=== PATIENT | female | born 1980 | race Caucasian/White ===

== ENCOUNTER 2022-06-04 19:34 | Emergency (ER) | payer OTHER, SELFPAY ==
--- NOTE | ~2022-06-04 | XR_ITS ---
EXAMINATION: XR chest 1V portable Exam Date/Time: 06/04/2022 19:55 CDT HISTORY: chest pain LT side x today Comparison: None available. RESULT: Lines, tubes, and devices: None. Lungs and pleura: Clear. Cardiomediastinal silhouette: Stable. Other: Minimal cortical irregularity of the left first lateral rib, possible fracture lucency in the left lateral second rib. No acute upper abdominal finding. IMPRESSION: Possible left first and second lateral rib fractures, correlate with pain/tenderness. Reviewed, dictated and finalized at location K. IMPRESSION: Possible left first and second lateral rib fractures, correlate with pain/tende rness.
[2022-06-04 19:35] VITALS: BP 152/98; PULSE 89; RESP 22; TEMP 36.6; O2SAT 100
[2022-06-04 19:45] VITALS: BP 144/88; PULSE 90; RESP 20; O2SAT 100
--- NOTE | 2022-06-04 19:48 | ED.GENADULT ---
HPI - General Adult General Chief complaint: Chest Pain Stated complaint: chest pain History of Present Illness HPI narrative: The patient is a 41-year-old woman with history of anxiety and fibromyalgia, status post hysterectomy. She presents with sharp stabbing left-sided chest pain since 6:15 p.m. today, for the last 90 minutes, centered in the left aspect of her chest, pleuritic in nature, worse by coughing or deep breathing. She is quite anxious. No radiation of the pain elsewhere. No dyspnea. No cough rhinorrhea or nasal congestion or fevers or chills with diaphoresis or abdominal pain or nausea vomiting or urinary symptoms. No previous similar episodes. Related Data Home Medications Medication Instructions Recorded Confirmed cyclobenzaprine 10 mg tablet 10 mg PO DIRECTED 06/04/22 06/04/22 sertraline 100 mg tablet 100 mg PO DIRECTED 06/04/22 06/04/22 tramadol 50 mg tablet 50 mg PO DIRECTED 06/04/22 06/04/22 Allergies Allergy/AdvReac Type Severity Reaction Status Date / Time No Known Allergies Allergy Unknown Verified 06/04/22 19:46 Review of Systems Review of Systems: All systems reviewed & are unremarkable except as noted in HPI and below Constitutional: Constitutional: Reports no additional constitutional complaints, Denies anorexia, Denies body ache(s), Denies chills, Denies excessive sweating, Denies fatigue, Denies fever(s), Denies frequent falls, Denies headache(s), Denies malaise and Denies poor appetite Eyes: Eyes: Reports no additional eye complaints, Denies blurry vision, Denies change in vision, Denies irritation, Denies itchy eyes and Denies photophobia ENT: Reports system reviewed and no additional complaints, except as documented, Reports Normal hearing present, Denies change in voice, Denies dysphagia, Denies vertigo, Denies dizziness, Denies ear discharge, Denies headache(s), Denies hearing loss, Denies hoarseness, Denies nasal congestion, Denies neck pain, Denies sinus pressure, Denies sore throat and Denies throat swelling Cardiovascular: Cardiovascular: Reports no additional cardiovascular complaints, Reports chest pain, Denies syncope, Denies rapid heart rate, Denies irregular heart rhythm, Denies leg edema, Denies dyspnea and Denies slow heart rate Respiratory: Respiratory: Reports no additional respiratory complaints, Denies cough, Denies dyspnea, Denies stridor and Denies wheezing Gastrointestinal: Gastrointestinal: Reports no additional gastrointestinal complaints, Denies abdominal pain, Denies melena, Denies hematochezia, Denies dysphagia, Denies diarrhea, Denies nausea and Denies vomiting Genitourinary: Genitourinary: Denies hematuria, Denies urinary frequency, Denies dysuria, Denies flank pain and Denies urinary urgency Musculoskeletal: Musculoskeletal: Reports no additional musculoskeletal complaints, Denies abnormal gait, Denies back pain, Denies myalgias, Denies arthralgias, Denies joint swelling, Denies limited range of motion, Denies muscle cramps, Denies muscle weakness, Denies neck pain and Denies numbness Integumentary/Breasts: Skin/Breast: Reports system reviewed and no additional complaints, except as docu, Denies breast pain, Denies change in pigmentation, Denies pruritus, Denies erythema and Denies wounds Neurologic: Reports system reviewed and no additional complaints, except as documented, Reports Normal hearing present, Denies Abnormal speech present, Denies abnormal gait, Denies confusion, Denies vertigo, Denies dizziness, Denies syncope, Denies frequent falls, Denies headache(s), Denies focal weakness, Denies numbness and Denies paresthesias Psychiatric: Psychiatric: Reports no additional psychiatric complaints, Reports anxiety and Denies confusion Endocrine: Endocrine: Reports no additional endocrine complaints, Denies cold intolerance, Denies excessive sweating, Denies fatigue and Denies heat intolerance Hematologic/Lymphatic: Hematologic/Lymphatic: Reports no addition
--- NOTE | 2022-06-04 19:53 | ECG_ITS ---
Measurements Intervals [place] Rate: 88 P: 56 MA: 161 QRS: 41 QRSD: 77 T: 51 QT: 354 QTc: 430 Interpretive Statements SINUS RHYTHM POSSIBLE LEFT ATRIAL ENLARGEMEN BASELINE ARTIFACT- I, II, III, AVR, AVL, AVF BORDERLINE ECG Electronically Signed On 06-06-2022 12:38:41 CDT by Adilson Cox D.O.
[2022-06-04 20:02] VITALS: BP 139/94; PULSE 89; RESP 20; O2SAT 100
[2022-06-04] MEDS: traMADol HCL (*CRX) 50 MG TABLET 100 MG PO (20:04)
[2022-06-04] MEDS: LORazepam (*CRX) 0.5 MG TABLET PO (20:08)
[2022-06-04] MEDS: ACETAMINOPHEN 325 MG TABLET 650 MG PO (20:08)
[2022-06-04] MEDS: IBUPROFEN 600 MG TABLET PO (20:08)
[2022-06-04 20:11] LABS: Basophils Absolute Auto 0.03 K/mm3 (0.00-0.10); Basophils Percent Auto 0.5 % (0.0-1.0); Eosinophils Absolute Auto 0.12 K/mm3 (0.02-0.50); Hematocrit 35.3 % (35.0-49.0); Hemoglobin 11.6 g/dL (12.0-15.0); Immature Granulocyte Absolute 0.01 K/mm3 (0.00-0.00); Immature Granulocyte Percent A 0.2 % (0.0-0.0); Lymphocytes Absolute Auto 2.04 K/mm3 (1.10-4.50); Lymphocytes Percent Auto 34.6 % (18.0-42.0); Mean Corpuscular HGB Conc 32.9 g/dL (32.0-36.0); Mean Corpuscular Hemoglobin 30.1 pg (27.0-31.0); Mean Corpuscular Volume 91.7 fL (78.0-102.0); Mean Platelet Volume 10.3 fl (9.2-11.8); Monocytes Absolute Auto 0.55 K/mm3 (0.10-0.90); Monocytes Percent Auto 9.3 % (2.0-11.0); Neutrophils Absolute Auto 3.2 K/mm3 (1.7-7.2); Neutrophils Percent Auto 53.4 % (50.0-70.0); Platelet Count Result 218 K/mm3 (150-420); Red Blood Count 3.85 M/mm3 (4.20-5.40); Red Cell Distribution Width 12.5 % (11.6-14.4); White Blood Count 5.9 K/mm3 (4.8-10.8)
[2022-06-04 20:23] LABS: D Dimer 0.19 mg/L (0.19-0.50)
[2022-06-04 20:28] LABS: Alanine Aminotransferase 17 U/L (14-59); Albumin Level 3.8 g/dL (3.4-5.0); Alkaline Phosphatase 46 U/L (46-116); Anion Gap 9 mmol/L (8-16); Aspartate Amino Transferase 18 U/L (15-37); Bilirubin,Total 0.3 mg/dL (0.00-1.00); Blood Urea Nitrogen 15 mg/dL (7-18); Calcium 8.8 mg/dL (8.5-10.1); Carbon Dioxide 26 mmol/L (21-32); Chloride 104 mmol/L (98-108); Estimated CRCL calculation 83 ml/min; Estimated Glomerular Filt Rate > 60; Glucose 105 mg/dL (70-99); Osmolality Calculated 288 mOsm/kg (285-295); Potassium 4.1 mmol/L (3.5-5.1); Sodium 139 mmol/L (136-145); Total Protein 7.2 g/dL (6.4-8.2); Troponin I 7.9 ng/L (0.00-60.4)
[2022-06-04 20:29] LABS: CRP < 0.2 mg/dL (0.0-0.9)
[2022-06-04 20:33] VITALS: BP 139/88; PULSE 78; RESP 18; O2SAT 100
--- NOTE | 2022-06-04 20:40 | PC.NURSE ---
Pt states her pain has subsided to a 4 but still has pain on inspiration. Pt also states she has traveled out of the state and would like a COVID swab. RN reports to ERP.
[2022-06-04] MEDS: HYDROcodone/acetaminophen (*CRX) 5-325 MG TABLET 1 TAB PO (20:48)
[2022-06-04 21:16] LABS: Erythrocyte Sedimentation Rate 9 mm/hr (0-15)
[2022-06-04 21:20] VITALS: BP 135/89; PULSE 82; RESP 20; O2SAT 98
[2022-06-04 21:21] LABS: SARS-CoV-2 RNA PCR Negative (Negative)
[2022-06-04 21:32] VITALS: BP 131/86; PULSE 79; RESP 18; TEMP 36.8; O2SAT 98
== END 2022-06-04 21:45 | disposition home or self-care (01) ==
PROVIDERS: Emergency Provider Emergency Medicine; PCP Family Medicine
DX: R07.9 Chest pain, unspecified (principal); F41.9 Anxiety disorder, unspecified; Z20.822 Contact with and (suspected) exposure to COVID-19
CPT/HCPCS: 36415; 71045; 80053; 84484; 85025; 85380; 85652; 86140; 93005; 99284; A9270; C9803; U0003; U0005

== ENCOUNTER 2022-07-20 10:34 | Outpatient (CLI) | payer OTHER, SELFPAY ==
--- NOTE | 2022-07-20 14:44 | P.PCNPFT_ITS ---
PFT Procedure Performed PFT Procedure Performed Spirometry with Pre/Post Bronchodilator Plethysmography (Lung Vol) Diffusing Cap (DLCO) Flow Vol Loop PFT Interpretation DOS:07/20/2022 REQUESTING: Dr. Gonzales REASON FOR TESTING: Dyspnea PULMONARY FUNCTION TESTS Results are reliable and reproducible. The RT recorded that the patient was anxious during the testing with difficulty performing the DLCO, however the results are reliable for interpretation. Spirometry: The pre-bronchodilator FEV1 is 2.77 L, 99% predicted, normal. The pre-bronchodilator FVC is 3.38 L, 99% predicted. The FEV1:FVC is 82%, normal. The EUF80-81% is normal, 3.27 L, 101% predicted. After bronchodilator, the FEV1 increases by 2% and the FVC decreases by 2%, insignificant changes. The FEF25- 75% increases by 16% Lung volumes: TLC 6.11 L, 117%, normal. The slow vital capacity is 4.63 L, 136%, much higher than the forced vital capacity seen in the spirometry. The FVC is 3.38 L, 99%. This is consistent with dynamic air trapping. RV is 1.48 L, 84%, normal. RV/TLC is normal, 24%, no air trapping. FRC is 3.09 L, 105%, normal. Airway resistance is above normal, 244%. Diffusion: DLCO is 23.4 mL/mmHg/min, 107%, normal. DLCO/VA is 4.94 mL/mmHg/min/L which is 116% predicted, normal. Flow volume loop: Normal. IMPRESSION: Normal spirometry, normal lung volumes with dynamic air trapping and increased airway resistance, and normal diffusion. Lack of response to bronchodilator should not preclude use if clinically indicated. The dynamic air trapping may be suggestive of an obstructive process although it is cannot be diagnosed on this study. Consider methacholine challenge to rule out asthma, if this is clinically significant. Estelle Pérez MD
== END 2022-07-20 10:35 | disposition home or self-care (01) ==
LOC: CHSCARD 10:37
PROVIDERS: PCP Family Medicine; Visit Provider Family Medicine
DX: R06.00 Dyspnea, unspecified (principal)
CPT/HCPCS: 94060; 94726; 94729

== ENCOUNTER → 2022-08-11 11:18 | Outpatient (CLI) | payer OTHER, SELFPAY ==
--- NOTE | ~2022-08-11 | XR_ITS ---
[XR_[id number] ] INDICATION: Left rib pain TECHNIQUE: Frontal projection of the upper left ribs, frontal projection of the lower left ribs, obli que projection of all the left ribs, frontal inspiratory chest x-ray for interpretation. FINDINGS: There are no displaced rib fractures identified. There are no soft tissue abnormality see n. The lungs are clear. There there are calcified granulomas in the left thorax. IMPRESSION: 1:No acute displaced rib fractures. Reviewed, dictated and finalized at location A.
== END ==
PROVIDERS: PCP Family Medicine; Visit Provider Family Medicine
DX: Q76.6 Other congenital malformations of ribs (principal)
CPT/HCPCS: 71101

== ENCOUNTER 2022-08-29 13:58 | Outpatient (CLI) | payer OTHER, SELFPAY ==
--- NOTE | ~2022-08-29 | CT_ITS ---
EXAMINATION: CT diagnostic chest wo con DATE: 08/29/2022 14:15 INDICATION: Other congenital malformations of the ribs TECHNIQUE: Computed tomography (CT) of the chest was performed without intravenous contrast. The dose -length product (DLP) was 136.94 mGy-cm. Automated exposure control and iterative reconstruction tech nique were employed. COMPARISON: None FINDINGS: The lungs are free of acute opacities. No pleural effusion or pneumothorax. Calcified pulmo nary nodules and calcified bilateral hilar and mediastinal lymph nodes are consistent with old granul omatous disease. No pathologically enlarged thoracic lymph nodes are identified. The heart size is no rmal. No displaced rib fracture is identified. There is a questionable nondisplaced fracture at the a nterolateral aspect of the left third rib. IMPRESSION: 1. No CT correlate for the patient's symptoms. 2. Possible nondisplaced fracture at the anterolateral aspect of the left third rib. Reviewed, dictated and finalized at location B.
== END 2022-08-29 13:59 ==
PROVIDERS: PCP Family Medicine; Visit Provider Family Medicine
DX: Q76.6 Other congenital malformations of ribs (principal)
CPT/HCPCS: 71250

== ENCOUNTER → 2022-10-02 13:42 | Outpatient (CLI) | payer OTHER, SELFPAY ==
--- NOTE | ~2022-10-02 | MM_ITS ---
EXAMINATION: MM screening jose BI w berny HISTORY: Screening mammogram TECHNIQUE: Craniocaudal and mediolateral oblique 3-D tomosynthesis images were obtained and synthetic 2-D images were generated. Bilateral rotated lateral CC views. CAD analysis was submitted and interp reted. COMPARISON: 02/07/2009 bilateral diagnostic mammography and breast ultrasound BREAST PARENCHYMAL COMPOSITION: The breasts are heterogeneously dense, which may obscure small masses . FINDINGS: Approximately 5.7 mm circumscribed opacity is noted in the anterior aspect of the outer lef t breast not far from the mid sagittal plane. Diagnostic right mammogram and right breast ultrasound examination are recommended. There are is no evidence of suspicious mass, calcification, or architectural distortion to suggest ma lignancy in either breast otherwise. There has been no other suspicious interval change. IMPRESSION: 1. 5.7 mm circumscribed mass in the anterior lower outer right breast 2. Diagnostic right mammogram and right breast ultrasound examination are recommended BI-RADS Category 0: Incomplete: Needs additional imaging evaluation. Reviewed, dictated and finalized at location A. IVING INSTRUCTOR IMPRESSION: 1. 5.7 mm circumscribed mass in the anterior lower outer right breast 2. Diagnostic right mammogram and right breast ultrasound examination are recom mended BI-RADS Category 0: Incomplete: Needs additional imaging evaluation.
== END ==
PROVIDERS: PCP Family Medicine; Visit Provider Family Medicine
DX: Z12.31 Encounter for screening mammogram for malignant neoplasm of breast (principal); R92.8 Other abnormal and inconclusive findings on diagnostic imaging of breast
CPT/HCPCS: 77063; 77067

== ENCOUNTER 2022-10-25 08:33 | Outpatient (CLI) | payer OTHER, SELFPAY ==
--- NOTE | ~2022-10-25 | MMUS_ITS ---
EXAMINATION: MM diagnostic jose RT w berny, US breast RT complete HISTORY: Follow-up right breast mass. TECHNIQUE: Additional 3-D tomosynthesis images of the right breast were performed and synthetic 2-D i mages were generated. CAD analysis was submitted and interpreted. High resolution right breast ultras ound was performed. COMPARISON: 10/02/2022 BREAST PARENCHYMAL COMPOSITION: The breasts are heterogeneously dense, which may obscure small masses FINDINGS: MAMMOGRAPHIC FINDINGS: There is a 7 mm mass in the lower outer quadrant of the right breast anteriorly. There are no suspici ous calcifications or architectural distortion. ULTRASOUND: Complete bilateral US of all 4 quadrants of the the right breast and retroareolar region was reviewed . At 12:00, 3 cm from the nipple there is an oval hypoechoic 5 mm mass with circumscribed margins, pa rallel orientation, no posterior features and no internal vascularity. Also at this location is a sim ilar-appearing 5 mm hypoechoic mass with similar sonographic characteristics. At 1:00, 6 cm from the nipple there is an oval circumscribed hypoechoic mass with parallel orientation, no posterior feature s and no internal vascularity measuring 7 mm. At 3:00, 3 cm from the nipple is a slightly irregular s haped antiparallel hypoechoic mass measuring 4 mm with posterior shadowing and no internal vascularit y. At 3:00, 2 cm from the nipple there is a 4 mm cyst. At 6:00, 3 cm from the nipple there is a 5 mm cyst. At 6:00, 1 cm from the nipple is an oval hypoechoic mass measuring 6 mm with circumscribed suzi ins, parallel orientation, no significant posterior features or internal vascularity. At 8:00, 2 cm f rom the nipple, there is an oval circumscribed hypoechoic mass measuring 7 mm with out posterior shad owing or internal vascularity. Parallel configuration. IMPRESSION: 1. Small irregular shaped 4 mm hypoechoic mass at 3:00, 3 cm from the nipple with antiparallel config uration and posterior shadowing. Ultrasound-guided biopsy recommended. 2. Multiple additional masses are identified in the right breast by ultrasound which are likely benig n. Six-month follow-up right breast ultrasound recommended for follow-up surveillance of these masses . BI-RADS category 4, suspicious findings. Reviewed, dictated and finalized at location B. TRICAL TIMING DEVICE CALIBRATOR IMPRESSION: 1. Small irregular shaped 4 mm hypoechoic mass at 3:00, 3 cm from the nipple wi th antiparallel configuration and posterior shadowing. Ultrasound-guided biopsy recommended. 2. Multiple additional masses are identified in the right breast by ultrasound which are likely benign. Six-month follow-up right breast ultrasound recommende d for follow-up surveillance of these masses. BI-RADS category 4, suspicious findings.
== END 2022-10-25 08:34 ==
PROVIDERS: PCP Family Medicine; Visit Provider Nurse Practitioner
DX: R92.8 Other abnormal and inconclusive findings on diagnostic imaging of breast (principal)
CPT/HCPCS: 76641; 77061; 77065; G0279

== ENCOUNTER 2023-05-24 15:21 | Outpatient (CLI) | payer OTHER, SELFPAY ==
--- NOTE | ~2023-05-24 | US_ITS ---
US breast RT complete DATE: 05/24/2023 16:04 INDICATION: Six-month follow-up; patient reportedly had a biopsy of the right breast 3:00 lesion 3 cm from nipple which she the technologist was reportedly benign. TECHNIQUE: Real-time imaging of the complete right breast including all 4 quadrants and subareolar ar ea COMPARISON: 10/25/2022 diagnostic right mammogram and complete right breast ultrasound examination FINDINGS: 12:00 4 cm from nipple: 3 x 4.7 x 8.5 mm parallel circumscribed hypoechoic lesion with through transm ission posterior enhancement, likely a benign solid lesion or benign complicated cyst 12:00 4 cm from nipple: There is an adjacent 1.6 x 5.1 x 4.9 mm parallel circumscribed hypoechoic les ion with through transmission, also likely benign. Neither of these 2 lesions has any suspicious inte rnal vascularity. 1:00 6 cm from nipple: Parallel circumscribed hypoechoic 3.7 x 8.9 x 5.9 mm hypoechoic lesion without internal vascularity or suspicious shadowing 2-3:00 4 cm from nipple: There is an anti--parallel hypoechoic irregular lesion measuring 3 x 4.9 x 2 .8 mm, with posterior shadowing. This lesion is suspicious. Ultrasound-guided biopsy is recommended ( even if this was the lesion previously biopsied). 3:00 3 cm from nipple: 3.8 x 3.4 mm cyst 3:00 subareolar area: 1.9 x 3.8 mm cyst 6:00 3 cm from nipple: Parallel circumscribed hypoechoic mildly irregular 4 x 5.9 x 6.7 mm lesion wit hout internal vascularity or posterior shadowing; considering the irregular margins, ultrasound-guide d biopsy should be considered. 6:00 2 cm from nipple: Parallel circumscribed 2.8 x 7.4 x 6.9 mm hypoechoic lesion without suspicious shadowing 6:00 2 cm from nipple: 3.4 x 3.7 x 4 mm cyst 7:00 4 cm from nipple: Parallel circumscribed 2.3 x 5.9 x 3.6 mm cyst 8:00 2 cm from nipple: Parallel circumscribed 3 x 5 x 7.5 mm hypoechoic lesion with through transmiss ion and posterior enhancement 10-11:00 6 cm from nipple: 2 x 3.2 x 3.5 mm simple cyst with through transmission and posterior enhan cement IMPRESSION: Irregular hypoechoic lesions of right breast at 200 and 3:00 4 cm from nipple and 6:00 3 cm from nipple Ultrasound-guided biopsy of 2-3:00 lesion and 6:00 lesion 3 cm from nipple is recommended BI-RADS Category 4: Suspicious abnormality; biopsy should be considered Reviewed, dictated and finalized at Location A. Reviewed, dictated and finalized at location A. IMPRESSION: Irregular hypoechoic lesions of right breast at 200 and 3:00 4 cm f rom nipple and 6:00 3 cm from nipple Ultrasound-guided biopsy of 2-3:00 lesion and 6:00 lesion 3 cm from nipple is r ecommended BI-RADS Category 4: Suspicious abnormality; biopsy should be considered
== END 2023-05-24 15:22 ==
PROVIDERS: PCP Family Medicine; Visit Provider Family Medicine
DX: R92.8 Other abnormal and inconclusive findings on diagnostic imaging of breast (principal); N64.9 Disorder of breast, unspecified
CPT/HCPCS: 76641

== ENCOUNTER 2023-06-27 08:52 | Outpatient (CLI) | payer OTHER, SELFPAY ==
--- NOTE | ~2023-06-27 | MMUS_ITS ---
US breast bx add lesion RT, MM post biopsy invasive RT, US breast biopsy RT w image EXAMINATION: US GUIDED NEEDLE BIOPSY WITH VACUUM ASSISTANCE DATE: 06/27/2023 11:06 CDT INDICATION: Right breast masses seen on prior examination. Ultrasound-guided core biopsy is requeste d to evaluate for malignancy. TECHNIQUE AND FINDINGS: The risks and potential benefits of the procedure were discussed with the patient, and written inform ed consent was obtained. After sterile preparation of the breast, 1% lidocaine was utilized for loca l anesthesia. 1% lidocaine with epinephrine was used for deep anesthesia. Masses at 2-3 o'clock, 4 c m from the nipple and 6:00, 3 cm from the nipple were localized using ultrasound. A 10G vacuum-assisted biopsy gun needle was advanced through to the outer edge of the region of inter est from a superior and inferior approach utilizing sonographic guidance. A total of 4 tissue core s amples were obtained through each lesion lesion at 2-3 o'clock and 6:00.. An Inrad tissue marker cli p was then placed at the biopsy site. Hemostasis was achieved. The patient tolerated procedure well and there was no evidence of immediate complication. The patien t was given verbal instructions partly is from the department. Right breast mammograms to document t issue marker clip placement. The tissue samples were submitted to surgical pathology for histologic a nalysis. IMPRESSION: 1. Successful ultrasound-guided vacuum-assisted biopsy right of left/right breast masses with tissue marker placement. Please refer to pathology report for histologic analysis. Postbiopsy sonographic i mages demonstrate hematoma formation post biopsy. Pressure was applied for 10-15 minutes post biopsy. Reviewed, dictated and finalized at location A. IMPRESSION: 1. Successful ultrasound-guided vacuum-assisted biopsy right of left/right isra ast masses with tissue marker placement. Please refer to pathology report for h istologic analysis. Postbiopsy sonographic images demonstrate hematoma formatio n post biopsy. Pressure was applied for 10-15 minutes post biopsy. IMPRESSION: 1. Successful ultrasound-guided vacuum-assisted biopsy right of left/right isra ast masses with tissue marker placement. Please refer to pathology report for h istologic analysis. Postbiopsy sonographic images demonstrate hematoma formatio n post biopsy. Pressure was applied for 10-15 minutes post biopsy. IMPRESSION: 1. Successful ultrasound-guided vacuum-assisted biopsy right of left/right sira ast masses with tissue marker placement. Please refer to pathology report for h istologic analysis. Postbiopsy sonographic images demonstrate hematoma formatio n post biopsy. Pressure was applied for 10-15 minutes post biopsy.
== END 2023-06-27 08:53 | disposition home or self-care (01) ==
PROVIDERS: PCP Family Medicine; Visit Provider Family Medicine
DX: D24.1 Benign neoplasm of right breast (principal); N64.89 Other specified disorders of breast
CPT/HCPCS: 19083; 19084; 88305; A4648

== ENCOUNTER 2024-08-18 16:32 | Outpatient (CLI) | payer OTHER, SELFPAY ==
--- NOTE | ~2024-08-18 | MM_ITS ---
EXAMINATION: MM screening jose BI w berny HISTORY: Screening TECHNIQUE: Craniocaudal and mediolateral oblique 3-D tomosynthesis images were obtained and synthetic 2-D images were generated. CAD analysis was submitted and interpreted. COMPARISON: Comparison to multiple prior studies sequentially, with oldest reviewed study dated 09/12. BREAST PARENCHYMAL COMPOSITION: Dense: The breasts are heterogeneously dense, which may obscure small masses FINDINGS: There are developing asymmetries in the central and lower inner quadrant of the right breas t. The left breast is stable without evidence for malignancy. IMPRESSION: 1. Developing right breast asymmetries. 2. Additional mammographic views and possible breast ultrasound are recommended. BI-RADS Category 0: Incomplete: Needs additional imaging evaluation. Reviewed, dictated and finalized at location B. IMPRESSION: 1. Developing right breast asymmetries. 2. Additional mammographic views and possible breast ultrasound are recommended . BI-RADS Category 0: Incomplete: Needs additional imaging evaluation.
== END 2024-08-18 16:33 | disposition home or self-care (01) ==
LOC: ANHIMG 16:34
PROVIDERS: PCP Family Medicine; Visit Provider Family Medicine
DX: N64.89 Other specified disorders of breast (principal); Z12.31 Encounter for screening mammogram for malignant neoplasm of breast
CPT/HCPCS: 77063; 77067

== ENCOUNTER 2024-10-02 10:41 | Outpatient (CLI) | payer OTHER, SELFPAY ==
--- NOTE | ~2024-10-02 | MMUS_ITS ---
EXAMINATION: MM diagnostic jose RT w berny, US breast RT limited HISTORY: Right breast asymmetry TECHNIQUE: Additional 3-D tomosynthesis images of the right breast were performed and synthetic 2-D i mages were generated. CAD analysis was submitted and interpreted. High resolution limited right breas t ultrasound was performed. COMPARISON: 08/18/2024, 11/21/2022 BREAST PARENCHYMAL COMPOSITION:Dense: The breasts are heterogeneously dense, which may obscure small masses. FINDINGS: MAMMOGRAPHIC FINDINGS: There is suspected persistent 6 mm mass at the slightly outer, central right breast. No suspicious ma sses or calcifications. ULTRASOUND: At the 6:00 position right breast, 2 cm nipple, there is a 4 mm circumscribed hypoechoic mass. No pos terior shadowing. There is a similar appearing 4 mm ovoid, parallel mass at the 6:00 position 1 cm fr om the nipple. At the 6:00 position near the nipple, there is a 6 mm cyst. At the 9:00 position right breast, 4 cm from the nipple, there is a 4 mm hypoechoic circumscribed nonshadowing mass. IMPRESSION: Probable benign subcentimeter lesions in the right breast seen sonographically, as detailed above. 6 on follow-up ultrasound recommended. No distinct evidence for malignancy. BI-RADS category 3, probably benign findings. Reviewed, dictated and finalized at location . ENTER'S HELPER IMPRESSION: Probable benign subcentimeter lesions in the right breast seen sonographically , as detailed above. 6 on follow-up ultrasound recommended. No distinct evidence for malignancy. BI-RADS category 3, probably benign findings.
== END 2024-10-02 10:42 | disposition home or self-care (01) ==
LOC: ANHIMG 10:56
PROVIDERS: PCP Family Medicine; Visit Provider Family Medicine
DX: R92.8 Other abnormal and inconclusive findings on diagnostic imaging of breast (principal)
CPT/HCPCS: 76642; 77061; 77065; G0279

== ENCOUNTER 2025-07-05 13:29 | Outpatient (CLI) | payer OTHER, SELFPAY ==
--- NOTE | ~2025-07-05 | MMUS_ITS ---
EXAMINATION: MM diagnostic jose BI w berny, US breast RT limited INDICATION: 45-year old female; BI-RADS 3, delayed follow up probably benign sonographic right breast finding and annual left breast mammogram. COMPARISON: 10/02/2024 through 10/02/2022 TECHNIQUE: Digital breast tomosynthesis routine bilateral MLO and CC views and True lateral and spot compression CC and MLO views of the RIGHT breast were obtained with computer-aided detection to assist in interpretation of the study. MAMMOGRAM FINDINGS: The breasts are heterogeneously dense, which may obscure small masses. The mass of concern in the outer central right breast is reidentified and is unchanged. No other mammographic abnormalities identified in either breast. RIGHT BREAST ULTRASOUND FINDINGS: Targeted evaluation of the area of concern in the outer central and 6:00 location was completed. There is a 0.8 x 0.5 x 0.3 cm oval anechoic cyst at 9:00 location 4 cm from the nipple in the RIGHT breast that correlate to the area of Mammographic finding. Additional cyst the measure 0.6 cm in diameter is seen at 9:00 near the nipple. Previously reported probably benign circumscribed oval shaped hypoechoic mass with maximum dimension of 0.6 cm is reidentified at 6:00, 1 cm from the nipple and is unchanged in the interval. IMPRESSION: Probable Benign RIGHT breast mass. No mammographic evidence of malignancy within the left breast. RECOMMENDATION: 12 month follow-up diagnostic RIGHT mammogram and RIGHT breast ultrasound due in June 2026 BI-RADS 3, PROBABLY BENIGN Reviewed, dictated and finalized at location B. IMPRESSION: Probable Benign RIGHT breast mass. No mammographic evidence of malignancy within the left breast. RECOMMENDATION: 12 month follow-up diagnostic RIGHT mammogram and RIGHT breast ultrasound due i n June 2026 BI-RADS 3, PROBABLY BENIGN
--- OUTSIDE RECORDS SUMMARY | 2025-07-05 13:37 | XMS_ITS | Clinical Summary ---
Author Organization [facility] Address [address] [place] [address] Care Team Providers Care Payloader Machine Operator Name Role Phone Rajendra Gonzales MD Primary Care Provider [phone] Source Comments [facility],non-owned Affiliates and Associated Physician Practices is amultiple site organization consisting of ambulatory clinics and hospital sitesin [place], [place], [place] and [place]. This disclosure is being madepursuant to the Care Everywhere program and may not contain all information available regarding this patient. Last updated 18.[facility] Allergies No known active allergies Medications * Be aware that medications may not be up to date on this document. Alwaysverify current medications with the patient. traMADol (ULTRAM) 50 MG tablet Take by mouth DAILY. 6 Active cyclobenzaprin e (FLEXERIL) 10 MG tablet Take 1 tablet by mouth at bedtime 1 Active naproxen (NAPROSYN) 500 MG tablet Take 500 mg by mouth 2 times daily as needed 1 Active sertraline (ZOLOFT) 50 MG tablet Take 50 mg by mouth once daily Active ibuprofen (MOTRIN) 600 MG tablet Take 1 (one) tablet by mouth every 6 hours as needed for Pain 30 tablet 2 Active oxyCODONE, immediate release, (ROXICODONE) 5 MG tablet Take 1 (one) tablet by mouth every 2 hours as needed for Pain 12 tablet 2 Active Additional Information Patient taking differently:5 mg Oral EVERY 2 HOURS PRN, Pain,(No instructions reported), Reported on 03/13/2022 acetaminophen (TYLENOL) 500 MG tablet Take 2 (two) tablets by mouth every 6 hours as needed for Fever or Pain Maximum allowable Acetaminophen amount = 4 Grams (4000 mg) / 24 hours. 0 2 Active ondansetron (ZOFRAN) 4 MG tablet Take 1 (one) tablet by mouth every 6 hours as needed for Nausea/Vomiting 10 tablet 2 Active Active Problems Problem Noted Date Diagnosed Date Myalgia 11/20/2016 Cervicalgia 11/20/2016 Dorsalgia 11/20/2016 Other malaise 11/20/2016 Other fatigue 11/20/2016 Family History Medical History Relation Name Comments None Known Father Status: Alive Migraine Mother Status: Alive Cancer - Breast Paternal Grandmother Relation Name Status Comments Father Mother Paternal Grandmother Social History Tobacco Use Types Packs/Day Years Used Date Smoking Tobacco: Former Cigarettes Q uit: 11/11/2003 Smokeless Tobacco: Never Alcohol Use Standard Drinks/Week Comments Yes 0 (1 standard drink = 0.6 oz pur e alcohol) social Comments No Sex and Gender Information Value Date Recorded Sex Assigned at Not on file 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 Gender Identity Not on file Sexual Orientation Not on file Last Filed Vital Signs Vital Sign Reading Time Taken Comments Blood Pressure 120/80 03/13/2022 9:16 AM CDT Pulse 78 03/08/2022 3:03 PM CDT Temperature 35.9 C (96.7 F) 03/13/2022 9:16 AM CDT Respiratory Rate 16 03/08/2022 3:03 PM CDT Oxygen Saturation 98% 03/08/2022 3:03 PM CDT Inhaled Oxygen Concentration - - Weight 62.6 kg (138 lb) 03/13/2022 9:16 AM CDT Height 166.4 cm (5' 5.5) 03/13/2022 9:16 AM CDT Body Mass Index 22.62 03/13/2022 9:16 AM CDT Plan of Treatment Health Maintenance Due Date Last Done Comments COLOGUARD (AGES 45-75) - COL ON CA SCREENING 1980 COLON MONITORING 1980 COLONOSCOPY - COLON CA SCREENING 1980 CT COLONOGRAPHY - COLON CA SCREENING 1980 Colorectal Cancer Screening 1980 FIT - COLON CA SCREENING 1980 FLEX SIG - COLON CA SCREENING 1980 LIPID TESTING 1980 MAMMOGRAM 1980 HIV SCREENING 1995 HEPATITIS C SCREENING 06/15/1998 DTAP/TDAP/TD VACCINES (1 - Tdap) 1999 HEPATITIS B VACCINE (1 of 3 - 19+ 3-dose series) 1999 PAP SMEAR 2001 HPV VACCINE (1 - 3-dose SCDM series) 2007 COVID-19 VACCINE (3 - 2023-2 5 season) 2024 04/18/2021, 03/28/2021 DEPRESSION SCREENING 11/11/2024 INFLUENZA VACCINE (#1) 2025 ZOSTER VACCINE (1 of 2) 2030 HIB VACCINE Aged Out No longer eligi ble based on patient's age to complete this topic MENINGOCOCCAL (Group B) VACCINE SHARED DECISION-MAKING Aged Out No longer eligible based on patient's age to complete this topic MENINGOCOCCAL GROUPS A/C/Y/W VACCINE Aged Out No longer eligible b ased on patient's age to complete this topic PNEUMOCOCCAL VACCINE Aged Out No long er eligible based on patient's age to complete this topic Medical Devices Implanted Type Area Director Of Financial Aid Device Identifier Shelf Expiration Date Model / Serial / Lot Sys Ureth Supp Best Adv Trnvg Midurethral Implanted:Qty: 1 on 03/08/2022 by Darrell Frazier MD at [facility] N/A: [facility] [employer] 12/18/2024 [id number] / / [id number] [facility] Member Subscriber Plan / Payer (Ef fective 2014-Present) Name:Stephany Sorenson Relation to Subscriber:Self Name:Stephany Sorenson Payer ID:[id number] (NAIC) Type:HMO Address: [address] [place] [id number] [employer] Member Subscriber Plan / Payer (Ef fective 2002-Present) Name:Stephany Sorenson Relation to Subscriber:Spouse Name:KHARI SORENSON Subscriber ID:Not on file (Home) Address: [address] [place] [address] Payer ID:[id number] ([facility]) Group ID:[id number] Type:O Address: [address] [place] [address] [place] [facility] [place] Address: [facility] [address] [place] [address] [employer]ERCIAL [employer]IC Member Subscriber Plan / Payer (Ef fective for All Dates) Name:Sherif, Stephany Relation to Subscriber:Spouse Name:BARTOLO SORENSON Date of :1973 (Home) Address: [address] [place] [address] Payer ID:Not on file Group ID:[id number] Type:Commercial Address: [id number] [place] [address] [employer]IG[employer] CIGNA Care Teams Payloader Machine Operator Relationship Specialty Start Date End Date Rajendra Gonzales MD [address] [place] [address] PCP - General 11/20/16
--- OUTSIDE RECORDS SUMMARY | 2025-07-05 13:37 | XMS_ITS | Clinical Summary ---
Author Organization 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 Gender Identity Not on file Sexual Orientation Not on file Plan of Treatment Health Maintenance Due Date Last Done Comments Cervical Cancer Screening Pa p Smear (Age 30 to 64) Every 3 Years 1980 Colorectal Cancer Screening Colonoscopy (10 Years) 1980 Annual Physical 1983 Hepatitis C 1998 DTaP, Tdap and Td Vaccines ( 1 - Tdap) 1999 Hepatitis B Vaccines (1 of 3 - 19+ 3-dose series) 1999 HPV Vaccines (1 - 3-dose SCD M series) 2007 Cervical Cancer Screening Pa p with HPV Testing (Age 30 to 64) Every 5 Years 2010 Cervical Cancer Screening wi th HPV 2010 COVID-19 Vaccine (2023-2 5 season) 2024 04/18/2021, 03/28/2021 Mammogram Screening 11/21/2024 11/21/2022 Meningococcal B Vaccine Aged Out No l onger eligible based on patient's age to complete this topic Meningococcal Vaccine Aged Out No janie hayde eligible based on patient's age to complete this topic Pneumococcal Vaccine: Pediatrics (0 to 5 Years) and At-Risk Patients (6 to 49 Years) Aged Out No longer eligible b ased on patient's age to complete this topic RSV Immunizations Under 20 Months Aged Out No longer eligible b ased on patient's age to complete this topic Procedures Procedure Name Priority Date/Time Associated Diagnosis Comments MG POST PROC RT DIAG MAMMO Routine 11/21/2022 9:00 AM POLISHER SAND Abnormal mammogram from Last 3 Months or Most Recently Relevant to Health Maintenance Results * MG POST PROC RT DIAG MAMMO (11/21/2022 9:00 AM POLISHER SAND) Anatomical Region Laterality Modality Breast Right Mammography 11/21/2022 8:58 AM POLISHER SAND Narrative 11/22/2022 12:23 PM POLISHER SAND EXAM: RIGHT BREAST ULTRASOUND GUIDED CORE BIOPSY WITH CLIP PLACEMENT [id number] Exam Date: 11/21/2022 8:00 AM INDICATION: Indeterminant nodule PROCEDURE: Patient was referred for ultrasound-guided core biopsy of 3:00 right 4 mm nodule located 3 cm from the nipple demonstrated on [facility] in [place], [place] diagnostic study performed 10/25/2022 .I provided a [id number] consultation prior to the scheduled procedure. The procedure, risks, benefits, and alternatives explained to the patient. Written informed consent obtained. Preprocedure timeout performed using 2 patient identifiers. Patient confirmed the side and type of procedure. I briefly reviewed the patient's medication list in person and verbally prior to the procedure. BIOPSY: Maximal sterile barrier technique was utilized for the entire procedure including handwashing with conventional soap-water and/or alcohol based hand inspector repairer sandstone along with sterile ultrasound technique. Subsequently 1% lidocaine alone administered for local anesthesia with attention was directed to the target. Using Kloudlessquee 14 gauge biopsy device with coaxial guide, multiple core samples were obtained through the target and confirmed on orthogonal views. Open heart biopsy clip placed in satisfactory position in this region under ultrasound guidance. Samples were sent to pathology for review. POST PROCEDURE MAMMOGRAM: Digital mammogram performed in a separate work room demonstrates biopsy clip in the far posteromedial breast with no discrete mammographic correlate as this was an incidental ultrasound detected finding. Patient tolerated the procedure well and there were no immediate complications. Written and verbal post procedure care instructions given to her prior to her departure. IMPRESSION: Successful ultrasound-guided biopsy indeterminant right 3:00 nodule. Open heart biopsy clip in satisfactory position. Pathology pending. PATHOLOGY RESULTS: The pathology results yielded:Fibroadenoma Please refer to the official pathology report for details. These findings are BENIGN and CONCORDANT with imaging. RECOMMENDATION: As per department protocol a 6 MONTH FOLLOW-UP RIGHT DIAGNOSTIC ULTRASOUND is recommended to demonstrate stability in the biopsied area and additional probably benign findings detailed on diagnostic study performed 10/25/2022. These findings and recommendations conveyed to the ordering provider's office by our department navigator Sharon Betancur as per standard department protocol. Reports were faxed to the ordering physician for review. Ordered By: RAJENDRA GONZALES Interpreted By: Nolvia Stoddard MD, 11/21/2022 8:58 AM Rajendra Gonzales MD MAMMO Final Result from Last 3 Months or Most Recently Relevant to Health Maintenance Insurance [facility] [employer] Member Subscriber Plan / Payer (Ef fective 2000-Present) Name:Carissa Sorenson Relation to Subscriber:Spouse Name:BARTOLO SORENSON Date of :1973 Payer ID:[id number] (NA) Group ID:[id number] Type:Not on file Address: [address] [place] [address] Care Teams Lead Performance Support Analyst Relationship Specialty Start Date End Date Rajendra Gonzales MD [address] [place] [address] PCP - General FAMILY PRACTICE 11/21/22
== END 2025-07-05 13:30 | disposition home or self-care (01) ==
LOC: ANHIMG 13:30 → ANHFOHIMG 13:30
PROVIDERS: PCP Family Medicine; Visit Provider Family Medicine
DX: R92.8 Other abnormal and inconclusive findings on diagnostic imaging of breast (principal)
CPT/HCPCS: 76642; 77062; 77066; G0279